=== PATIENT | male | born 1955 | race Two or more races ===

== ENCOUNTER 2017-12-31 06:06 | Day surgery (SDC) | payer MEDICAID ==
[2017-12-28 12:37] LABS: Basophils # (auto) 0 uL; Basophils % (auto) 0.3 % (0.0-2.0); Eosinophils # (auto) 0 uL; Eosinophils % (auto) 0.8 % (0.0-7.0); Hematocrit 47.7 % (41.0-53.0); Lymphocytes # (auto) 1.1 uL; Lymphocytes % (auto) 22.7 % (10.0-50.0); Mean Corpuscular Hgb Conc. 33.6 g/dL (32.0-36.0); Mean Corpuscular Volume 89.2 fL (80.0-100.0); Monocytes # (auto) 0.5 uL; Monocytes % (auto) 10.4 % (0.0-12.0); Neutrophils # (auto) 3.2 uL; Neutrophils % (auto) 65.8 % (37.0-80.0); Nucleated Red Blood Cells % 0.1 %; Platelet Count (auto) 173 10^3/uL (140-450); Red Blood Cells 5.35 10^6/uL (4.5-5.90); White Blood Cell 4.9 10^3/uL (4.4-10.8)
[2017-12-28 13:02] LABS: Partial Thromboplastin Time 27.1 sec (23.78-33.04); Prothrombin Time 10.7 sec (9.27-12.13)
[2017-12-28 13:38] LABS: Alanine Aminotransferase 27 U/L (16-61); Alkaline Phosphatase 62 U/L (45-117); Anion Gap 7 (5-15); Aspartate Aminotransferase 20 U/L (15-37); BUN/Creatinine Ratio 12.7; Bilirubin, Total 1.2 mg/dL (0.2-1.0); Blood Urea Nitrogen 14 mg/dL (7-18); Calcium 8.9 mg/dL (8.5-10.1); Carbon Dioxide 27 mmol/L (21-32); Chloride 107 mmol/L (98-107); GFR African American 87 mL/min; GFR Non-African American 72 mL/min; Glucose 90 mg/dL (74-106); Potassium 4.8 mmol/L (3.5-5.1); Sodium 141 mmol/L (136-145)
[2017-12-28 13:39] LABS: Albumin 4.2 g/dL (3.4-5.0); Total Protein 8.6 g/dL (6.4-8.2)
[2017-12-28 13:46] LABS: Urine Bacteria NONE SEEN /hpf (None Seen); Urine Blood 2+ /uL (Negative); Urine Mucus FEW (None Seen); Urine Specific Gravity 1.023 (1.001-1.035); Urine WBC 5 /hpf (0 - 3)
[~2017-12-31] VITALS: Ht 177.8 cm; Wt 81.2 kg
[~2017-12-31 06:06] MED LIST: ALEN70TA55 PO; LISI10TA6 PO; METF-370 PO; TAMS0.4C36 PO
[2017-12-31] MEDS ORDERED: SUCCINYLCHOLINE CHLORIDE 20 MG/ML 10ML VIAL IV ONE (07:15)
[2017-12-31] MEDS ORDERED: fentaNYL CITRATE 100 MCG/2 ML VL ONE (07:31)
[2017-12-31] MEDS ORDERED: DEXAMETHASONE SOD PHOS 10MG/1ML VIAL INJ ONE (07:31)
[2017-12-31] MEDS ORDERED: MEPERIDINE HCL (50 MG/ML) 1 ML VIAL ONE (07:31)
[2017-12-31] MEDS ORDERED: PROPOFOL 10 MG/ML 20 ML IV ONE (07:31)
[2017-12-31] MEDS ORDERED: MIDAZOLAM HCL 1MG/1ML-2 ML VIAL ONE (07:31)
[2017-12-31] MEDS ORDERED: ceFAZolin 1GM/50ML 50 ML IV ONE (07:42)
[2017-12-31] MEDS ORDERED: ePHEDrine SULFATE 50 MG/ML AMP IV PRN (07:45)
[2017-12-31] MEDS ORDERED: HYDROmorphone HCL 2 MG/ML VL IV PRN (07:45)
[2017-12-31] MEDS ORDERED: ONDANSETRON HCL 4 MG/2 ML VIAL IV ONE (07:45)
[2017-12-31] MEDS ORDERED: KETOROLAC TROMETH 30 MG/ML 1ML VIAL IV ONE (07:45)
[2017-12-31] MEDS ORDERED: MORPHINE SULFATE 4 MG/ML SYR/VIAL IV PRN (07:45)
[2017-12-31] MEDS ORDERED: MIDAZOLAM HCL 1MG/1ML-2 ML VIAL IV PRN (07:45)
[2017-12-31] MEDS ORDERED: LABETALOL HCL 5 MG/ML 4ML SYRINGE IV PRN (07:45)
[2017-12-31] MEDS ORDERED: ACCU-CHEK COMFORT CURVE STRIP VI ONE (07:45)
[2017-12-31] MEDS ORDERED: MORPHINE SULFATE 4 MG/ML SYR/VIAL IV ONE (08:00)
[2017-12-31 09:41] VITALS: BP 134/79
== END 2017-12-31 09:56 | disposition home or self-care (01) ==
LOC: SUR 06:06
PROVIDERS: ATTEND Urology
DX: N30.21 Other chronic cystitis with hematuria (principal); N40.1 Benign prostatic hyperplasia with lower urinary tract symptoms; I10 Essential (primary) hypertension; E11.9 Type 2 diabetes mellitus without complications; I25.10 Atherosclerotic heart disease of native coronary artery without angina pectoris; E78.5 Hyperlipidemia, unspecified; Z79.84 Long term (current) use of oral hypoglycemic drugs; Z98.890 Other specified postprocedural states
CPT/HCPCS: 52204; J2175; J3010; J7030; 36415; 80053; 81001; 82962; 85025; 85610; 85730; J0330; J0690; J1100; J2250; J2704

== ENCOUNTER 2018-11-14 09:46 | Day surgery (SDC) | payer MEDICAID ==
[2018-11-10 12:02] LABS: Urine Bacteria NONE SEEN /hpf (None Seen); Urine Blood 2+ /uL (Negative); Urine Specific Gravity 1.018 (1.001-1.035); Urine WBC 4 /hpf (0 - 3)
[2018-11-10 12:04] LABS: Basophils # (auto) 0 uL; Basophils % (auto) 0.3 % (0.0-2.0); Eosinophils # (auto) 0 uL; Hematocrit 46.9 % (41.0-53.0); Hemoglobin 15.8 g/dL (13.5-17.5); Lymphocytes # (auto) 0.9 uL; Mean Corpuscular Hemoglobin 30.1 pg (28.0-32.0); Mean Corpuscular Hgb Conc. 33.8 g/dL (32.0-36.0); Mean Corpuscular Volume 89.2 fL (80.0-100.0); Monocytes # (auto) 0.3 uL; Monocytes % (auto) 8.3 % (0.0-12.0); Neutrophils # (auto) 2.7 uL; Neutrophils % (auto) 67.4 % (37.0-80.0); Platelet Count (auto) 175 10^3/uL (140-450); Red Blood Cells 5.25 10^6/uL (4.5-5.90); Red Cell Distribution Width 14.4 % (11.8-14.3)
[2018-11-10 12:17] LABS: Alanine Aminotransferase 24 U/L (16-61); Anion Gap 10 (5-15); Aspartate Aminotransferase 14 U/L (15-37); BUN/Creatinine Ratio 14.4; Blood Urea Nitrogen 14 mg/dL (7-18); Calcium 8.5 mg/dL (8.5-10.1); Carbon Dioxide 25 mmol/L (21-32); Chloride 106 mmol/L (98-107); GFR African American 100 mL/min; GFR Non-African American 83 mL/min; Glucose 116 mg/dL (74-106); Potassium 3.8 mmol/L (3.5-5.1); Sodium 141 mmol/L (136-145)
[2018-11-10 12:19] LABS: Partial Thromboplastin Time 27.5 sec (23.64-32.05)
[2018-11-10 12:32] LABS: Alkaline Phosphatase 70 U/L (45-117); Bilirubin, Total 0.8 mg/dL (0.2-1.0); Total Protein 8.3 g/dL (6.4-8.2)
[~2018-11-14] VITALS: Ht 177.8 cm; Wt 78.9 kg
[~2018-11-14 09:46] MED LIST changes: +ALEN1TAB32 PO; -ALEN70TA55 PO; -TAMS0.4C36 PO
[2018-11-14] MEDS ORDERED: ONDANSETRON HCL 4 MG/2 ML VIAL ONE (12:17)
[2018-11-14] MEDS ORDERED: MIDAZOLAM HCL 1MG/1ML-2 ML VIAL ONE (12:17)
[2018-11-14] MEDS ORDERED: fentaNYL CITRATE 100 MCG/2 ML VL ONE (12:17)
[2018-11-14] MEDS ORDERED: PROPOFOL 10 MG/ML 20 ML IV ONE (12:17)
[2018-11-14] MEDS ORDERED: SODIUM CHLORIDE LOCK 10 ML ONE (12:17)
[2018-11-14] MEDS ORDERED: CIPROFLOXACIN 400MG/200ML 200 ML IV ONE (12:28)
[2018-11-14] MEDS ORDERED: METOCLOPRAMIDE HCL 5MG/ml INJ 2ml VIAL IV ONE (12:30)
[2018-11-14] MEDS ORDERED: HYDROmorphone HCL 2 MG/ML VL IV PRN (12:30)
[2018-11-14] MEDS ORDERED: ACCU-CHEK COMFORT CURVE STRIP VI ONE (12:30)
[2018-11-14] MEDS ORDERED: ROCURONIUM 10MG/ML 10ML VIAL IV ONE (12:58)
[2018-11-14] MEDS ORDERED: NEOSTIGMINE 1 MG/ML INJ (10mg/10ML VIAL) ONE (13:03)
[2018-11-14] MEDS ORDERED: GLYCOPYRROLATE 0.2 MG/ML 1ML VIAL ONE (13:03)
[2018-11-14 15:02] VITALS: BP 164/85
== END 2018-11-14 15:30 | disposition home or self-care (01) ==
LOC: SUR 09:46
PROVIDERS: ATTEND Urology
DX: N40.1 Benign prostatic hyperplasia with lower urinary tract symptoms (principal); N32.0 Bladder-neck obstruction; C67.9 Malignant neoplasm of bladder, unspecified; I10 Essential (primary) hypertension; E11.9 Type 2 diabetes mellitus without complications; Z79.899 Other long term (current) drug therapy; Z79.84 Long term (current) use of oral hypoglycemic drugs; Z98.890 Other specified postprocedural states
CPT/HCPCS: 36415; 52601; 80053; 81001; 82962; 85025; 85610; 85730; 88305; 88342; J0744; J1170; J2250; J2405; J2704; J3010

== ENCOUNTER → 2024-02-21 | Outpatient (CLI) | payer OTHER, MEDICARE, MEDICAID ==
[~2024-02-21] VITALS: Ht 175.3 cm; Wt 81.6 kg
[~2024-02-21] MED LIST changes: -ALEN1TAB32 PO; +ALEN70TA74 PO; +LISI10TA34 PO; -LISI10TA6 PO
[2024-02-21] MEDS: ADENOSINE 69 MG in GIVE UN-DILUTED 0 ML IV STA (09:14)
== END | disposition home or self-care (01) ==
LOC: XYW 07:17
PROVIDERS: ATTEND Specialist
DX: I99.8 Other disorder of circulatory system (principal); R00.1 Bradycardia, unspecified; I10 Essential (primary) hypertension; E11.9 Type 2 diabetes mellitus without complications; E78.5 Hyperlipidemia, unspecified; N40.0 Benign prostatic hyperplasia without lower urinary tract symptoms
CPT/HCPCS: 78452; 93017; A9500; J0153